=== PATIENT | female | born 1980 | race Caucasian/White ===

== ENCOUNTER 2018-05-16 16:46 | Emergency (ER) | payer MEDICAID ==
[~2018-05-16] VITALS: Ht 147.3 cm; Wt 61.2 kg
[2018-05-16 16:54] VITALS: BP 153/90
--- NOTE | 2018-05-16 17:46 | NUR ---
PT TO ER BED 1
[2018-05-16 19:10] VITALS: BP 120/78
--- NOTE | 2018-05-16 19:10 | NUR ---
pt discharged home; prescriptions and instructions given;verbalized understanding.
== END 2018-05-16 19:09 | disposition home or self-care (01) ==
LOC: MED 16:46
DX: J06.9 Acute upper respiratory infection, unspecified (principal); H66.91 Otitis media, unspecified, right ear
CPT/HCPCS: 99283

== ENCOUNTER 2018-09-28 19:41 | Emergency (ER) | payer MEDICAID ==
[~2018-09-28] VITALS: Ht 152.4 cm; Wt 61.7 kg
[2018-09-28 19:45] VITALS: BP 142/90
--- NOTE | 2018-09-28 19:48 | NUR ---
TO LOBBY A/W BED, AMBULATORY
--- NOTE | 2018-09-28 21:17 | NUR ---
pt ambulated to bed #12
--- NOTE | 2018-09-28 22:10 | NUR ---
38/F PRESENTS TO ED, C/O 08/14 STABBING NONRADIATING L BREAST PAIN BEHIND L NIPPLE, X2 DAYS. PT DENIES SOB, N/V. L BREAST WITHOUT OBVIOUS DEFORMITY, SWELLING, ERYTHEMA OR DIMPLING, TENDER TO TOUCH. PT AWAKE AND ALERT, SKIN NORMAL WARM AND DRY, RR EVEN AND UNLABORED. HX HTN; DENIES RX.
[2018-09-28] MEDS ORDERED: KETOROLAC 60 MG/2 ML VIAL IM ONE (22:30)
[2018-09-28 23:00] VITALS: BP 158/84
== END 2018-09-28 23:00 | disposition home or self-care (01) ==
LOC: MED 19:41
DX: N60.02 Solitary cyst of left breast (principal); I10 Essential (primary) hypertension
CPT/HCPCS: 76641; 96372; 99284; J1885; Q0092

== ENCOUNTER 2019-03-15 06:23 | Emergency (ER) | payer MEDICAID ==
[~2019-03-15] VITALS: Ht 152.4 cm; Wt 62.1 kg
[2019-03-15 06:34] VITALS: BP 158/83
--- NOTE | 2019-03-15 06:40 | NUR ---
PT AMBULATED TO BED #3
--- NOTE | 2019-03-15 06:42 | NUR ---
38 Y/O FEMALE C/O COLD SX X 1 WEEK. PT STATES SHE WAS HERE ON TUESDAY THIS WEEK FOR SAME PROB. PT ALSO STATES EVERYONE AT HOME IS SICK. RUNNY NOSE, CONGESTION, LUNG SOUNDS CLEAR ALL THORUGHOUT. NO RESP DISTRESS NOTED. NO SOB, NO USE OF ACCESSORY MUSCLE. STEADY GAIT. PRODUCTIVE COUGH PRESENT. VSS. A & O X4. SPO2 100% RA. NKA. PMH: DIABETES.
--- NOTE | 2019-03-15 06:47 | NUR ---
DENIES N,V,D. NO FEVER NOTED AT TRIAGE.
--- NOTE | 2019-03-15 07:10 | NUR ---
RECEIVED REPORT FROM ASIYA KAY.
[2019-03-15 07:36] VITALS: BP 147/84
--- NOTE | 2019-03-15 07:36 | NUR ---
Note undone in EDM - 03/15/19 at 0741 by [email or web address] Patient discharged with v/s stable BY DR JEFFERSON. Written and verbal after care instructions given and explained. Patient alert, oriented and verbalized understanding of instructions. Ambulatory with steady gait. All questions addressed prior to discharge. ID band removed. Patient advised to follow up with PMD. Rx of AUGMENTIN given. Patient educated on indication of medication including possible reaction and side effects. Opportunity to ask questions provided and answered.
== END 2019-03-15 07:36 | disposition home or self-care (01) ==
LOC: MED 06:23
DX: J06.9 Acute upper respiratory infection, unspecified (principal); E11.9 Type 2 diabetes mellitus without complications; I10 Essential (primary) hypertension; Z98.890 Other specified postprocedural states
CPT/HCPCS: 71045; 99283; Q0092

== ENCOUNTER 2020-02-20 19:52 | Emergency (ER) | payer MEDICAID ==
[~2020-02-20] VITALS: Ht 154.9 cm; Wt 68.0 kg
[2020-02-20 21:30] VITALS: BP 112/90
--- NOTE | 2020-02-20 21:30 | NUR ---
TO TENT # 05 AMBULATORY
--- NOTE | 2020-02-20 22:30 | NUR ---
SEEN AND EXAMINED BY ROMA WITH ORDERS AND CARRIED OUT
--- NOTE | 2020-02-20 22:40 | NUR ---
SWAB DONE AND SENT TO LAB
--- NOTE | 2020-02-20 23:00 | NUR ---
RESULTS BACK AND NOTED BY ERMD AND FOR D/C
[2020-02-20 23:20] VITALS: BP 118/78
--- NOTE | 2020-02-20 23:20 | NUR ---
Patient discharged with v/s stable. Written and verbal after care instructions given and explained. Patient alert, oriented and verbalized understanding of instructions. Ambulatory with steady gait. All questions addressed prior to discharge. ID band removed. Patient advised to follow up with PMD. Rx of MOTRIN, PREDNISONE given. Patient educated on indication of medication including possible reaction and side effects. Opportunity to ask questions provided and answered.
== END 2020-02-20 23:20 | disposition home or self-care (01) ==
LOC: MED 19:52
DX: R05 Cough (principal); Z20.828 Contact with and (suspected) exposure to other viral communicable diseases; E11.9 Type 2 diabetes mellitus without complications; I10 Essential (primary) hypertension
CPT/HCPCS: 71045; 99284; U0003

== ENCOUNTER 2023-03-17 18:30 | Inpatient (IN) | payer MEDICAID ==
[~2023-03-17] VITALS: Ht 157.5 cm; Wt 63.5 kg
[2023-03-17 18:44] VITALS: BP 161/89; PULSE 93; RESP 18; TEMP 97.7; O2SAT 98
[2023-03-17 19:55] LABS: BASOPHILS % (AUTO) 0.3 % (0.0-2.0); EOSINOPHILS # (AUTO) 0.1 K/uL (0-0.4); HEMATOCRIT 39.4 % (36-48); HEMOGLOBIN 13.7 g/dL (12.0-16.0); MEAN CORPUSCULAR HEMOGLOBIN 31 pg (27-31); MEAN CORPUSCULAR HGB CONC 35 g/dL (33-37); MEAN CORPUSCULAR VOLUME 87.8 fL (80-94); MONOCYTES # (AUTO) 0.6 K/uL (0.8-1.0); MONOCYTES % (AUTO) 7.7 % (1.7-9.3); NEUTROPHILS # (AUTO) 4.4 K/uL (1.8-7.7); PLATELET COUNT (AUTO) 187 K/uL (140-450); RED BLOOD CELL COUNT(AUTO) 4.48 MIL/uL (4.20-5.40); RED CELL DISTRIBUTION WIDTH 13.4 % (11.6-13.7); WHITE BLOOD COUNT (AUTO) 8.1 K/uL (4.8-10.8)
[2023-03-17 19:56] LABS: APPEARANCE,URINE CLEAR (CLEAR); BILIRUBIN,URINE NEGATIVE (NEGATIVE); BLOOD, URINE NEGATIVE (NEGATIVE); COLOR,URINE YELLOW (YELLOW); LEUKOCYTE ESTERASE ,URINE NEGATIVE (NEGATIVE); NITRITE, URINE NEGATIVE (NEGATIVE); PROTEIN,URINE TRACE (NEGATIVE); UGLUCOSE 3+ (NEGATIVE); UROBILINOGEN,URINE 0.2 EU/dL (0.2 - 1)
[2023-03-17 20:25] LABS: ALBUMIN 3.4 g/dL (3.4-5.0); ANION GAP 11.4 (8-16); CALCIUM 9.2 mg/dL (8.5-10.1); CARBON DIOXIDE 32.2 mmol/L (21-32); CREATININE 0.8 mg/dL (0.6-1.3); POTASSIUM 3.6 mmol/L (3.5-5.1); TOTAL BILIRUBIN 0.4 mg/dL (0.0-1.0)
[2023-03-17] MEDS: NACL 0.45% 1,000 ML IV SCH (21:45)
[2023-03-17 21:58] VITALS: O2SAT 98
[2023-03-18 01:25] VITALS: O2SAT 98
[2023-03-18] MEDS ORDERED: hydrALAZINE 20 MG/ML VIAL IVP PRN (06:15)
[2023-03-18 07:01] LABS: BASOPHILS % (AUTO) 0.3 % (0.0-2.0); EOSINOPHILS # (AUTO) 0.1 K/uL (0-0.4); EOSINOPHILS % (AUTO) 1.1 % (0.0-4.0); HEMATOCRIT 36.7 % (36-48); HEMOGLOBIN 12.6 g/dL (12.0-16.0); LYMPHOCYTES # (AUTO) 3.2 K/uL (2.5-16.5); LYMPHOCYTES % (AUTO) 39.3 % (20.5-51.1); MEAN CORPUSCULAR HEMOGLOBIN 30 pg (27-31); MEAN CORPUSCULAR HGB CONC 34 g/dL (33-37); MEAN CORPUSCULAR VOLUME 88.1 fL (80-94); MONOCYTES # (AUTO) 0.6 K/uL (0.8-1.0); MONOCYTES % (AUTO) 6.7 % (1.7-9.3); NEUTROPHILS # (AUTO) 4.3 K/uL (1.8-7.7); NEUTROPHILS % (AUTO) 52.6 % (42.2-75.2); PLATELET COUNT (AUTO) 168 K/uL (140-450); RED BLOOD CELL COUNT(AUTO) 4.16 MIL/uL (4.20-5.40); RED CELL DISTRIBUTION WIDTH 13.1 % (11.6-13.7); WHITE BLOOD COUNT (AUTO) 8.3 K/uL (4.8-10.8)
[2023-03-18 07:28] LABS: ALBUMIN 2.9 g/dL (3.4-5.0); ANION GAP 11.5 (8-16); CALCIUM 8.1 mg/dL (8.5-10.1); CARBON DIOXIDE 27.4 mmol/L (21-32); CREATININE 0.6 mg/dL (0.6-1.3); MAGNESIUM 1.8 mg/dL (1.8-2.4); PHOSPHORUS 2.8 mg/dL (2.5-4.9); POTASSIUM 3.9 mmol/L (3.5-5.1); TOTAL BILIRUBIN 0.5 mg/dL (0.0-1.0); TOTAL PROTEIN, SERUM 7.6 g/dL (6.4-8.2)
[2023-03-18] MEDS: NACL 0.45% 1,000 ML IV SCH (07:45)
[2023-03-18 08:01] VITALS: O2SAT 98
[2023-03-18 10:01] VITALS: O2SAT 98
[2023-03-18 12:01] VITALS: O2SAT 98
[2023-03-18] MEDS ORDERED: AMLO5TAB PO (12:16)
[2023-03-18 14:02] VITALS: O2SAT 98
[2023-03-18 15:08] VITALS: BP 126/73; PULSE 82; RESP 19; TEMP 98.5; O2SAT 99
== END 2023-03-18 15:08 | disposition home or self-care (01) | DRG 244 ==
LOC: MED 18:30 → MTU 21:46
PROVIDERS: ADMIT Family Medicine; ATTEND Family Medicine
DX: K57.30 Diverticulosis of large intestine without perforation or abscess without bleeding (principal); K56.600 Partial intestinal obstruction, unspecified as to cause; K56.7 Ileus, unspecified; I10 Essential (primary) hypertension
CPT/HCPCS: 36415; 74250; 80053; 81003; 83690; 83735; 84100; 84484; 85025; 99285; J0360; Q0092